=== PATIENT | male | born 2000 | race Caucasian/White ===

== ENCOUNTER 2022-09-10 10:48 | Emergency (ER) | payer SELFPAY ==
[2022-09-10 10:55] VITALS: BP 101/62; PULSE 90; RESP 20; TEMP 98.4; BMI 23.5
[2022-09-10] MEDS ORDERED: ONDANSETRON 4 MG/2 ML VIAL IVPUSH ONE (12:53)
[2022-09-10] MEDS ORDERED: MAG HYDROX/AL HYDROX/SIMETH -MYLANTA- ORAL SUSPENSION PO ONE (12:53)
[2022-09-10] MEDS ORDERED: FAMOTIDINE 20 MG/50 ML IVPB 20 MG/50 ML MG IVPB ONE (12:53)
[2022-09-10 13:45] LABS: BASO % 1.4 % (0-2.0); HEMATOCRIT 51.4 % (35.4-49); HEMOGLOBIN 16.9 GM/dL (11.7-16.9); MCH 29.3 pg (25.7-33.7); MCHC 32.9 g/dl (32.0-35.9); MEAN CELL VOLUME 89.1 fl (80-96); MEAN PLT VOLUME 8.2 fl (7.5-11.1); MONO % 10.5 % (3.8-10.2); NEUT % 36.1 % (42.8-82.8); PLATELET COUNT 281 10^3/uL (134-434); RBC 5.77 M/mm3 (4.00-5.60); RDW 13.1 % (11.9-15.9)
[2022-09-10 13:54] LABS: INR 1.11 (0.83-1.09); PROTHROMBIN TIME (PATIENT) 12.8 SEC (9.7-13.0)
[2022-09-10 13:57] LABS: ACTIVATED PTT 33.8 SECONDS (25.2-36.5)
[2022-09-10 14:06] LABS: ALBUMIN 4.4 g/dl (3.4-5.0); BLOOD UREA NITROGEN 16.2 mg/dL (7-18); CALCIUM 9.7 mg/dL (8.5-10.1)
[2022-09-10 14:11] LABS: BILIRUBIN,TOTAL 0.8 mg/dL (0.2-1); TOT PROT 7.9 g/dl (6.4-8.2)
[2022-09-10] MEDS ORDERED: MAG HYDROX/AL HYDROX/SIMETH 30 ML UNIT-DOSE CUP ONE (15:07)
[2022-09-10] MEDS ORDERED: ONDANSETRON 4 MG/2 ML VIAL ONE (15:07)
== END 2022-09-10 15:45 | disposition home or self-care (01) ==
LOC: JER 10:48
DX: R10.13 Epigastric pain (principal)
CPT/HCPCS: 36415; 76705-TC; 80053; 83690; 85025; 85610; 85730; 86850; 86900; 86901; 99281-25

== ENCOUNTER 2023-05-28 23:12 | Emergency (ER) | payer OTHER ==
[2023-05-28 23:19] VITALS: BP 115/68; PULSE 89; RESP 16; TEMP 98.1; BMI 24.4
[2023-05-29] MEDS ORDERED: ACETAMINOPHEN 325 MG TABLET (FP) PO ONE (01:34)
[2023-05-29] MEDS ORDERED: ACETAMINOPHEN 325 MG TABLET (FP) ONE (01:40)
[2023-05-29 02:18] LABS: BASO % 1.2 % (0-2.0); HEMATOCRIT 45.2 % (35.4-49); HEMOGLOBIN 15.6 GM/dL (11.7-16.9); LYMPH % 47.1 % (8-40); MCH 29.9 pg (25.7-33.7); MCHC 34.4 g/dl (32.0-35.9); MEAN CELL VOLUME 86.8 fl (80-96); MONO % 11.3 % (3.8-10.2); NEUT % 35.4 % (42.8-82.8); PLATELET COUNT 244 10^3/uL (134-434); RDW 13.4 % (11.9-15.9); WHITE BLOOD COUNT 5.8 K/mm3 (4.0-10.0)
[2023-05-29 03:25] LABS: POTASSIUM 4.5 mmol/L (3.5-5.1)
[2023-05-29 03:29] LABS: CALCIUM 8.6 mg/dL (8.5-10.1)
[2023-05-29 03:30] LABS: ALBUMIN 4.2 g/dl (3.4-5.0)
[2023-05-29 03:33] LABS: CREATININE 0.9 mg/dL (0.55-1.3)
[2023-05-29 03:34] LABS: BILIRUBIN,TOTAL 0.6 mg/dL (0.2-1); TOT PROT 7.1 g/dl (6.4-8.2)
== END 2023-05-29 03:43 | disposition left against medical advice (07) ==
LOC: JER 23:12
DX: R07.89 Other chest pain (principal); M79.602 Pain in left arm; R53.1 Weakness; I45.10 Unspecified right bundle-branch block
CPT/HCPCS: 36415; 71046-TC-FY; 80053; 84484; 85025; 93005; 93010; 99285-25